=== PATIENT | female | born 1970 | race Caucasian/White ===

== ENCOUNTER → 2016-12-29 | Outpatient (CLI) | payer MEDICAID ==
[~2016-12-29] MED LIST: ALBUTEROL-200 PUFFS/ IH; AMOXICILLIN500 M2 PO; ATIVAN0.5 MG PO; CARAFATE 1GM TAB1 GM PO; CELEXA20 MG PO; CELEXA40 MG PO; CLONAZEPAM 1MG T1 MG PO; CLONIDINE HYDR0.1 MG PO; CYCLOBENZAPRINE10 M3 PO; DICLOFENAC SOD75 MG PO; DILANTIN100 MG PO; DOXEPIN 25MG CA25 MG PO; DOXYCYCLINE HY100 M3 PO; ESCITALOPRAM 2020 MG PO; ESCITALOPRAM20 MG PO; FLEXERIL10 MG PO; FLUOXETINE20 M2 PO; GABAPENTIN 400400 MG PO; GABAPENTIN 600600 MG PO; GABAPENTIN100 M1 PO; GABAPENTIN800 MG PO; HYDROCODONE-APA1 TA1 PO; KEFLEX250 M1 PO; LISINOPRIL 10MG10 MG PO; LORTAB 5/500 501 TAB; LORTAB 5/500 501 TAB PO; LORTAB 7.5/5001 TA1 PO; MEDROL 4MG. DOSE4 MG PO; METHOTREXATE 22.5 MG; MOTRIN 400MG.400 MG PO; MOTRIN600 MG PO; MOTRIN800 MG PO; NAPROSYN 500MG500 MG PO; NEURONTIN600 MG PO; NEURONTIN800 MG PO; NICODERM C21 MG/24 H TD; NOMEDS; NORCO 325 MG-51 TAB PO; OXYCODONE 5MG TA5 MG PO; OXYCODONE PO; PERCOCET 5/3251 EACH PO; PHENERGAN 25MG.25 M1 PO; PREMARIN 0.60.625 MG PO; PRILOSEC OTC20 MG PO; QUETIAPINE FUMA25 M1 PO; REMERON15 MG PO; ROBAXIN 500 MG500 MG PO; SEROQUEL50 MG PO; SINGULAIR 10 MG10 MG PO; TESSALON PERLE100 MG PO; TORADOL10 MG PO; TRAMADOL 50MG T50 M1 PO; TRAMADOL 50MG T50 MG PO; TRAZADONE HYDR100 MG PO; TRAZODONE 50MG50 MG PO; TRAZODONE100 MG PO; Tramadol HCl50 MG PO; ULTRACET 325 MG1 TAB PO; VICODIN 5/500 T1 TAB PO; VISTARIL25 MG PO
[2016-12-29 20:20] LABS: AMPHETAMINES/METAMPHETAMINES NEGATIVE ng/mL (<1000)
== END ==
LOC: LAB 16:05
PROVIDERS: Emergency Medicine
DX: B19.20 Unspecified viral hepatitis C without hepatic coma (principal)